=== PATIENT | male | born 1990 | race American Indian/Alaskan Native ===

== ENCOUNTER 2020-07-20 07:44 | Emergency (ER) | payer SELFPAY ==
[~2020-07-20] VITALS: Ht 172.7 cm; Wt 88.5 kg
== END 2020-07-20 09:17 | disposition home or self-care (01) ==
LOC: ED 07:44
DX: T25.221A Burn of second degree of right foot, initial encounter (principal); T31.0 Burns involving less than 10% of body surface; S91.331A Puncture wound without foreign body, right foot, initial encounter; X08.8XXA Exposure to other specified smoke, fire and flames, initial encounter; F17.200 Nicotine dependence, unspecified, uncomplicated
CPT/HCPCS: 90471; 90715; 99283-25